=== PATIENT | female | born 1965 | race Caucasian/White ===

== ENCOUNTER 2023-11-06 08:02 | Emergency (ER) | payer BC, SELFPAY ==
[2023-11-06 08:12] VITALS: BP 137/74; PULSE 80; RESP 16; TEMP 36.9; O2SAT 97; BMI 29.2
--- NOTE | 2023-11-06 08:19 | ED.URI ---
HPI - URI/Sore Throat General Chief Complaint: Upper Respiratory Symptoms Stated Complaint: covid+, sent by nurse Time Seen by Provider: 11/06/23 08:19 History of Present Illness HPI Narrative: Patient is a 57-year-old female history of pulmonary embolisms failed Eliquis on warfarin, multiple strokes including a stroke, asthma has known COVID and presents today at request of insurance nurse for evaluation. She was diagnosed with COVID 4 days ago by home test. sHe continues to have headache and body aches. She staying hydrated although she says her urine was quite dark this morning. She says she just did not feel quite well she put up a home pulse oximeter on her finger he said for about 5 minutes it was 88%. She used her inhaler she went to the shower she was able to get it back up by taking deep breaths. She was instructed to come to the ED for further evaluation. She is not tachycardic or hypoxic here in the ED Exam Initial Vital Signs Initial Vital Signs: Vital Signs Temperature 98.4 F 11/06/23 08:12 Pulse Rate 80 11/06/23 08:12 Respiratory Rate 16 11/06/23 08:12 Blood Pressure 137/74 11/06/23 08:12 Pulse Oximetry 97 11/06/23 08:12 Oxygen Delivery Method Room Air 11/06/23 08:12 GENERAL: Well-appearing, well-nourished and in no acute distress. HEENT: Head atraumatic,EOMI, pupils reactive, face symmetric, moist mucous membranes CARDIOVASCULAR: Regular rate and rhythm without murmurs, rubs or gallops. RESPIRATORY: Breath sounds equal bilaterally, no wheezes rales or rhonchi. Lungs clear speaks in full sentences no respiratory distress EXTREMITIES: Normal range of motion, no clubbing or edema. Neurovascularly intact NEUROLOGICAL: Alert and oriented x4.Normal gait and speech. SKIN: Warm, dry, no laceration, no petechiae, no rashes or lesions. Course Vital Signs Vital signs: Vital Signs - 8 hr 11/06/23 08:12 Temperature 98.4 F Pulse Rate 80 Respiratory Rate 16 Blood Pressure 137/74 Pulse Oximetry 97 Oxygen Delivery Method Room Air MDM - URI/Sore Throat MDM Narrative Medical decision making narrative: Patient 57-year-old female with multiple comorbidities including CVA, pulmonary embolism with known COVID presents today concern for hypoxia home. Not hypoxic or tachycardic in the ED she is no evidence of respiratory distress lungs are clear. She has an albuterol inhaler at home we discussed using it more regularly if needed. At this time she appears well. Does not seem to need a chest x-ray or further workup. Encouraged her to continue taking her warfarin. She is scheduled to have an INR checked next week. Discharge Plan Departure Patient Disposition: Home Clinical Impression: COVID-19 Instructions: DI for COVID-19 (Suspected or Confirmed ) Activity Restrictions/Additional Instructions: *You have been diagnosed with COVID-19 *What to do: At this time rest and stay hydrated. Try to eat some. Continue to monitor oxygen levels *Continue to take medications as directed Albuterol 1-2 puffs every 4 hours if needed for cough or shortness Tylenol 650 mg every 6 hours if needed for fever *Follow up with your primary care provider in 2-3 days or call [phone] *Return to ER if you should have increasing shortness of breath oxygen less than 90% chest pain weakness or any new, worsening or concerning symptoms Referrals: Mc Maier DO [Primary Care Provider] - Stand Alone Forms: Patient Portal/API
--- NOTE | 2023-11-06 08:28 | PC.NURSE ---
Pt was advised to come to ED for being COVID+ day 4 by insurance company nurse. Pt is PWD. speaking in full sentences with normal vitals and SPO2 97%. Pt used her abuterol inhaler this morning for some SOB. No acute distress. Advised having some SOB and a cough is a symptom of covid and self limiting. Advised for return precautions.
== END 2023-11-06 08:39 | disposition home or self-care (01) ==
PROVIDERS: Emergency Provider Emergency Medicine; PCP Family Medicine
DX: U07.1 COVID-19 (principal); J45.909 Unspecified asthma, uncomplicated; Z86.711 Personal history of pulmonary embolism; Z79.01 Long term (current) use of anticoagulants; Z86.73 Personal history of transient ischemic attack (TIA), and cerebral infarction without residual deficits
CPT/HCPCS: 99281

== ENCOUNTER 2023-12-12 08:49 | Emergency (ER) | payer BC, SELFPAY ==
[2023-12-12 09:01] VITALS: BP 142/77; PULSE 90; RESP 16; TEMP 36.6; O2SAT 96; BMI 28.3
--- NOTE | 2023-12-12 09:08 | ED.SOB ---
HPI - SOB/Dyspnea General Chief Complaint: Upper Respiratory Symptoms Stated Complaint: cough w/chest pain and SOB Time Seen by Provider: 12/12/23 08:52 Source: patient Mode of arrival: Family Vehicle Limitations: no limitations History of Present Illness HPI Narrative: This is a 57-year-old female with history of pulmonary emboli on warfarin, prior strokes, asthma with recent cough, congestion and productive sputum with the discoloration. Patient states she has been coughing frequently enough that she has pain when she coughs in her right side of her chest. She feels like she strained or pulled a muscle. Patient states she has felt a little bit more short of breath. No syncope. No reported fevers. Several days of symptoms. Patient states no nausea or vomiting. She has had some diarrhea recently since symptoms started. No new swelling of extremities. Patient did have COVID at the beginning of October. Has had prior cervical spine surgery, total hysterectomy. Allergic to sulfa and barium sulfate. No tobacco, occasional alcohol, no recreational drugs. Accompanied by her . Related Data Previous Rx's Medication Instructions Recorded codeine 10 mg-guaifenesin 100 mg/5 10 ml PO Q6H PRN cough #120 mL 12/12/23 mL oral liquid Allergies Allergy/AdvReac Type Severity Reaction Status Date / Time barium sulfate Allergy Hives Verified 12/12/23 09:06 Sulfa (Sulfonamide Allergy Vomiting Verified 12/12/23 09:06 Antibiotics) Review of Systems Review of Systems ROS Unobtainable: All systems reviewed & are unremarkable except as noted in HPI and below Patient History Social History Smoking Status: Never smoker Smoking Status: Never smoker alcohol intake frequency: 0-2 drinks per day Substance Use Type: does not use Exam Narrative Exam Narrative: GENERAL: Alert and oriented x three, female in mild distress seated comfortably on edge of bed. HEENT: Head normocephalic, atraumatic, EOMI, pupils reactive, face symmetric, moist mucous membranes NECK: Supple, full range of motion CARDIOVASCULAR: Regular rate and rhythm without murmurs, rubs or gallops. No JVD. No edema bilateral lower extremities. RESPIRATORY: Breath sounds equal bilaterally, no wheezes rales or rhonchi. Dry cough with deep inhalation, No tachypnea or accessory. No tachypnea. ABDOMEN: Soft, nontender. Normoactive bowel sounds all 4 quadrants. No guarding or rebound, rigidity, no mass : No CVA tenderness EXTREMITIES: Normal range of motion, no clubbing or edema. Neurovascularly intact NEUROLOGICAL: Cranial nerves II through XII grossly intact. Moving all extremities SKIN: Warm, dry, no petechiae, no rashes or lesions. Initial Vital Signs Initial Vital Signs: Vital Signs Temperature 97.9 F 12/12/23 09:01 Pulse Rate 90 12/12/23 09:01 Respiratory Rate 16 12/12/23 09:01 Blood Pressure 142/77 H 12/12/23 09:01 Pulse Oximetry 96 12/12/23 09:01 Oxygen Delivery Method Room Air 12/12/23 09:01 Course Orders Ordered: ED Orders 12/12/23 09:13 Chest [XR chest 2V] Stat EKG-12 Lead Stat 12/12/23 09:36 Complete Blood Count AUTO DIFF Stat Comprehensive Metabolic Panel Stat Covid-19 + FLU A/B + RSV - PCR Stat Lipase Stat NT-proBNP (BNP-Adult 18+) Stat PTT Partial Thromboplastin [place] Stat Prothrombin Time INR Stat Troponin & CK Cardiac Panel Stat Vital Signs Vital signs: Vital Signs - 8 hr 12/12/23 09:01 12/12/23 09:50 12/12/23 09:51 Temperature 97.9 F Pulse Rate 90 98 H Respiratory Rate 16 Blood Pressure 142/77 H 133/69 Pulse Oximetry 96 97 Oxygen Delivery Method Room Air 12/12/23 09:51 12/12/23 10:00 12/12/23 10:00 Temperature Pulse Rate 86 79 Respiratory Rate Blood Pressure 113/62 Pulse Oximetry 97 94 Oxygen Delivery Method Room Air 12/12/23 10:30 12/12/23 10:30 Temperature Pulse Rate 80 Respiratory Rate Blood Pressure 108/63 Pulse Oximetry 94 Oxygen Delivery Method Room Air MDM - SOB/Dyspnea Lab Data 12/12/23 09:36 12/12/23 09:36 Labs: Lab Results 12/12/23 Range/Units 09:36 WBC 3.2 L (4.5-11.0) X10^3/uL RBC 4.62 (4.0-5.2) X10^6/uL Hgb 11.8 L (12.0-16.0) g/dL Hct 36.0 (36-46) % MCV 78.0 L (80-100) fL MCH 25.6 L (26-34) PG MCHC 32.8 (30-36) % RDW 17.6 H (11.6-14.8) % Plt Count 293 (150-400) X10^3/uL Neut % (Auto) 79.3 H (50-75) % Lymph % (Auto) 13.2 L (25-40) % [place] % (Auto) 7.4 (3-14) % Eos % (Auto) 0.0 L (2-4) % Baso % (Auto) 0.1 (0-2) % Neut # (Auto) 2500 (9706-4528) /uL Lymph # (Auto) 400 L (0451-7347) /uL [place] # (Auto) 200 (0-900) /uL Eos # (Auto) 0 (0-450) /uL Baso # (Auto) 0 (0-100) /uL PT 44.5 H (9.4-12.5) SECONDS INR 3.8 H (0.9-1.3) APTT 43 H (25.1-36.5) SECONDS Sodium 139 (137-145) mmol/L Potassium 4.2 (3.4-5.1) mmol/L Chloride 109 H (98-107) mmol/L Carbon Dioxide 23 (22-32) mmol/L BUN 11 (7-17) mg/dL Creatinine 0.66 (0.52-1.04) mg/dL Estimated GFR > 60 (>60) mL/min BUN/Creatinine Ratio 16.7 (6-22) Glucose 148 H (70-100) mg/dL Calcium 9.1 (8.4-10.2) mg/dL Total Bilirubin 0.4 (0.2-1.3) mg/dL AST 47 H (14-36) IU/L ALT 35 H (<35) IU/L Alkaline Phosphatase 59 (38-126) U/L Total Creatine Kinase 179 H (30-135) U/L Troponin I < 0.012 (0.01-0.034) ng/mL NT-Pro-B Natriuret Pep 40 (<125) pg/mL Total Protein 7.4 (6.3-8.2) g/dL Albumin 4.2 (3.5-5.0) g/dL Globulin 3.2 (1.7-4.1) g/dL Albumin/Globulin Ratio 1.3 (1.0-2.8) Lipase 58 (23-300) U/L SARS-CoV-2 (PCR) Positive H (Negative) Influenza A (RT-PCR) Flu a positive H (NEGATIVE) Influenza B (RT-PCR) Flu b negative (NEGATIVE) RSV (PCR) Negative (Negative) Imaging Data Chest x-ray: Radiologist's Impression: Close Chest X-Ray (Signed) Dominic Paulino - 12/12/23 Launch?[address] [address] XRay Report Signed Patient: Wendy Maki MR#: [id number] : 1965 Acct:[id number] Age/Sex: 57 / F Date of Service: 12/12/23 Loc: ED Accession Number: [id number] Procedure: XR chest 2V Ordering Provider: Cynthia Garland D.O. PROCEDURE: XR CHEST 2V INDICATIONS: cough, productive sputum, sob TECHNIQUE: 2 views of the chest were acquired. COMPARISON: None. FINDINGS: Surgical changes and devices: Postsurgical changes are noted in visualized lower cervical spine and upper thoracic spine. Lungs and pleura: Lungs are clear. No pleural effusions or pneumothorax. Mediastinum: Mediastinal contours are normal. Heart size is normal. Bones and chest wall: No suspicious bony abnormalities. Soft tissues appear unremarkable. IMPRESSION: No acute cardiopulmonary pathology. Dictated by: Dominic Paulino M.D. on 12/12/2023 at 9:54 Approved by: Dominic Paulino M.D. on 12/12/2023 at 9:54 ECG Data Attestation: I personally reviewed and interpreted this ECG as follows: Prior ECG tracings: not available for review Interpretation: Sinus rhythm rate 83 OH 134 QRS is 64 QTC of 430. No acute ST elevation T-wave inverted in lead 3. No other acute changes appreciated. Patient does not have any priors for comparison. MDM Narrative Medical decision making narrative: This is a 57-year-old female with history of pulmonary emboli hold warfarin. Patient has had viral upper respiratory type symptoms she has a cough she has had some pain in her right chest with cough feels like she strained a muscle. It only occurs when she coughs hard. Patient is little bit congestion on examination in her nares, lungs are clear. No crackles or wheezes. She has noted some rodriguez productive sputum. Plan for COVID/influenza/RSV swab, chest x-ray because patient's history of pulmonary emboli she and her INR checked recently but no one ever called her with the results. We will check labs. CBC patient has low white count, hemoglobin is 11.8 with microcytosis. Patient states she has been told she has had abnormalities before. Normal platelets of 293 CMP chloride 109 otherwise normal electrolytes glucose 148 normal renal function AST ALT are slightly elevated at 47 and 35 with CK 179 and trope that is negative. INR is 3.8 Trop is negative BNP is normal CXR chest x-ray shows no acute change EKG EKG shows no acute changes. covid/influenza/rsv swab is positive for influenza A. Patient is also positive for COVID but was positive in mid to early October so maybe residual. Patient had slightly low blood pressure but otherwise very well-appearing. Patient has ambulated about the room without issue. Patient is felt appropriate for discharge home. Discussed Tamiflu will hold off at this time patient is outside the window 5 days of symptoms and she does not wish to pursue any way. We will do a short course of anti cough medication. Return precautions. Patient's INR is elevated so asked her to hold for the next 2 doses and follow up with physician to have rechecked. Discharge Plan Departure Patient Disposition: Home Clinical Impression: Influenza A Activity Restrictions/Additional Instructions: Your swab today is positive for influenza A, you are positive for COVID as well but this may be a residual positive from your infection last month. Your INR today is 3.8, please hold your next two doses and then restart. Follow up with your physician to have your INR rechecked. Continue with Tylenol and/or ibuprofen as needed for fevers. Take cough medication as prescribed. This medication can make you sleepy do not drive, perform hazardous activities or make any major decisions while taking it. This medication will make you constipated please take a stool softener once to twice daily until stools are soft and regular. Prescription sent to [facility] in [place]. Please return for new or worsening chest pain, shortness of breath, lightheadedness or passing out, new swelling in your extremities, or other new or concerning changes. Prescriptions: New codeine-guaifenesin 10-100 mg/5 mL liquid 10 ml PO Q6H PRN (Reason: cough) Qty: 120 0RF Referrals: Mc Maier DO [Primary Care Provider] - Stand Alone Forms: Patient Portal/API
--- NOTE | 2023-12-12 09:13 | DI.RAD.S_ITS ---
PROCEDURE: XR CHEST 2V INDICATIONS: cough, productive sputum, sob TECHNIQUE: 2 views of the chest were acquired. COMPARISON: None. FINDINGS: Surgical changes and devices: Postsurgical changes are noted in visualized lower cervical spine and upper thoracic spine. Lungs and pleura: Lungs are clear. No pleural effusions or pneumothorax. Mediastinum: Mediastinal contours are normal. Heart size is normal. Bones and chest wall: No suspicious bony abnormalities. Soft tissues appear unremarkable. IMPRESSION: No acute cardiopulmonary pathology. Dictated by: Dominic Paulino M.D. on 12/12/2023 at 9:54 Approved by: Dominic Paulino M.D. on 12/12/2023 at 9:54
[2023-12-12 09:48] LABS: Add Manual Diff / Slide Review NO; Basophils Absolute Auto 0 /uL (0-100); Basophils Percent Auto 0.1 % (0-2); Eosinophils Absolute Auto 0 /uL (0-450); Hemoglobin 11.8 g/dL (12.0-16.0); Lymphocytes Absolute Auto 400 /uL (1100-4500); Lymphocytes Percent Auto 13.2 % (25-40); Mean Corpuscular HGB Conc 32.8 % (30-36); Mean Corpuscular Hemoglobin 25.6 PG (26-34); Monocytes Absolute Auto 200 /uL (0-900); Monocytes Percent Auto 7.4 % (3-14); Neutrophils Absolute Auto 2500 /uL (1500-7000); Neutrophils Percent Auto 79.3 % (50-75); Platelet Count 293 X10^3/uL (150-400); Red Blood Cell Count 4.62 X10^6/uL (4.0-5.2); Red Cell Distribution Width 17.6 % (11.6-14.8); White Blood Cell Count 3.2 X10^3/uL (4.5-11.0)
[2023-12-12 09:50] VITALS: PULSE 98; O2SAT 97
[2023-12-12 09:51] VITALS: BP 133/69; PULSE 86; O2SAT 97
[2023-12-12 09:54] LABS: INR 3.8 (0.9-1.3); Prothrombin Time 44.5 SECONDS (9.4-12.5)
[2023-12-12 09:57] LABS: PTT Partial Thromboplastin Tim 43 SECONDS (25.1-36.5)
[2023-12-12 09:59] LABS: Alanine Aminotransferase 35 IU/L (<35); Albumin 4.2 g/dL (3.5-5.0); Albumin Globulin Ratio 1.3 (1.0-2.8); Alkaline Phosphatase 59 U/L (38-126); Aspartate Aminotransferase 47 IU/L (14-36); BUN Creatinine Ratio 16.7 (6-22); Bilirubin Total 0.4 mg/dL (0.2-1.3); Blood Urea Nitrogen 11 mg/dL (7-17); Calcium 9.1 mg/dL (8.4-10.2); Carbon Dioxide 23 mmol/L (22-32); Chloride 109 mmol/L (98-107); Creatine Kinase 179 U/L (30-135); Estimated Glomerular Filt Rate > 60 mL/min (>60); Globulin 3.2 g/dL (1.7-4.1); Glucose 148 mg/dL (70-100); HEMOLYSIS < 15 (0-50); Lipase 58 U/L (23-300); Potassium 4.2 mmol/L (3.4-5.1); Sodium 139 mmol/L (137-145); Total Protein 7.4 g/dL (6.3-8.2)
[2023-12-12 10:00] VITALS: BP 113/62; PULSE 79; O2SAT 94
[2023-12-12 10:09] LABS: NT-proBNP (BNP-Adult 18+) 40 pg/mL (<125)
[2023-12-12 10:12] LABS: Troponin I < 0.012 ng/mL (0.01-0.034)
[2023-12-12 10:25] LABS: Influenza A - CEPHEID Flu A POSITIVE (NEGATIVE); Influenza B - CEPHEID Flu B NEGATIVE (NEGATIVE); Respiratory Syncytial Virus Negative (Negative)
[2023-12-12 10:30] VITALS: BP 108/63; PULSE 80; O2SAT 94
[2023-12-12 10:30] LABS: COVID-19 CEPHEID 4-PLEX PCR POSITIVE (Negative)
== END 2023-12-12 10:54 | disposition home or self-care (01) ==
PROVIDERS: Emergency Provider Emergency Medicine; PCP Family Medicine
DX: U07.1 COVID-19 (principal); J10.1 Influenza due to other identified influenza virus with other respiratory manifestations; R07.9 Chest pain, unspecified
CPT/HCPCS: 0241U; 36415; 71046; 80053; 82550; 83690; 83880; 84484; 85025; 85610; 85730; 93005; 93010; 99284

== ENCOUNTER → 2024-04-15 07:08 | Outpatient (CLI) | payer BC, SELFPAY ==
--- NOTE | 2024-04-15 07:11 | DI.MRI.S_ITS ---
PROCEDURE: MR LUMBAR SPINE WO CON INDICATIONS: INCREASED LOW BACK PAIN W/RADIATION TO RT KNEE TECHNIQUE: Noncontrast sagittal T1 spin echo and T2 fast echo, sagittal STIR, and T2 fast spin echo through the lumbar spine. In cases with scoliosis, additional coronal T2 fast spin echo may be performed. COMPARISON: None. FINDINGS: Image quality: Excellent. Alignment and Curvature: There is trace retrolisthesis at L2-3. There is otherwise normal bony alignment. Bone Marrow: Marrow is of normal overall signal. No acute vertebral body compression fractures. Spinal Cord: Conus medullaris terminates at the L1 level. Visualized cord demonstrates normal signal and size. Paraspinous Soft Tissues: No paravertebral masses. T12-L1: Mild disc desiccation and height loss. No canal stenosis. No foraminal stenosis. L1-L2: Mild disc desiccation and height loss. Broad-based disc bulge. Moderate facet ligamentum flavum hypertrophy. No canal stenosis. Mild bilateral foraminal stenosis. L2-L3: Severe disc desiccation and height loss. Trace retrolisthesis. Mild facet ligamentum flavum hypertrophy. Mild canal stenosis. Moderate right and mild left foraminal narrowing. L3-L4: Mild disc desiccation and height loss. Moderate facet ligamentum flavum hypertrophy. Broad-based disc bulge. Mild canal stenosis. Mild left and moderate right foraminal narrowing. L4-L5: Mild disc desiccation and height loss. Severe facet ligamentum flavum hypertrophy. Mild canal stenosis. Mild bilateral foraminal stenosis. L5-S1: Mild disc desiccation and height loss. No canal stenosis. Mild right foraminal stenosis. Moderate left foraminal narrowing. IMPRESSION: 1. Multilevel disc desiccation and height loss most severe at L2-3. 2. Multilevel broad-based disc bulges and facet and ligamentum flavum hypertrophy with resultant mild canal stenosis at L2-3, L3-4, and L4-5. 3. Moderate right foraminal stenosis at L2-3 and L3-4. Moderate left foraminal stenosis at L5-S1. Dictated by: Irena Ross M.D. on 04/15/2024 at 16:31 Approved by: Irena Ross M.D. on 04/15/2024 at 16:40
--- NOTE | 2024-04-15 08:13 | DI.RAD.S_ITS ---
PROCEDURE: XR CERVICAL SPINE 4V OR 5V INDICATIONS: NECK PAIN TECHNIQUE: 5 views of the cervical spine acquired. COMPARISON: None. FINDINGS: Bones: No fractures or dislocations to the T1 level. Grade 1 anterolisthesis of C2 on C3. Discectomy and anterior fusion at C3-C7 and C6-T1. Oblique images demonstrate multilevel bilateral bony foraminal stenoses, most pronounced and moderate at C2 3-C4 on the right, mild at multiple other levels. Soft tissues: No prevertebral soft tissue swelling. IMPRESSION: 1. Extensive postsurgical changes with discectomy and anterior fusion at C3-T1. 2. Grade 1 anterolisthesis of C2-C3. 3. Multilevel foraminal stenoses bilaterally as described. Dictated by: Gibson Guthrie M.D. on 04/15/2024 at 9:24 Approved by: Gibson Guthrie M.D. on 04/15/2024 at 9:30
== END ==
PROVIDERS: PCP Internal Medicine; Referring Provider Anesthesiology; Visit Provider Anesthesiology
DX: M48.02 Spinal stenosis, cervical region (principal); M43.12 Spondylolisthesis, cervical region; M47.816 Spondylosis without myelopathy or radiculopathy, lumbar region; M51.36 Other intervertebral disc degeneration, lumbar region; M48.061 Spinal stenosis, lumbar region without neurogenic claudication; M48.07 Spinal stenosis, lumbosacral region; M54.2 Cervicalgia; Z98.1 Arthrodesis status
CPT/HCPCS: 72050; 72148

== ENCOUNTER → 2024-04-23 15:16 | Outpatient (CLI) | payer BC, SELFPAY ==
--- NOTE | 2024-04-23 15:17 | DI.MRI.S_ITS ---
PROCEDURE: MR CERVICAL SPINE WO CON INDICATIONS: Cervical radiculopathy TECHNIQUE: Noncontrast sagittal T1 spin echo and T2 fast spin echo, sagittal STIR, foraminal oblique sagittal T2 fast spin echo, and axial gradient echo or T2 fast spin echo through the cervical spine. COMPARISON: [facility], CR, XR CERVICAL SPINE 4V OR 5V, 04/15/2024, 8:19. FINDINGS: Image quality: Susceptibility artifact is present from metallic hardware of cervical fusion. Alignment and Curvature: Anterior fusion is present from C3 through C6 with additional anterior fusion wires at C6-7 and C7-T1. There is trace anterolisthesis of C2 on C3. Bone Marrow: Marrow demonstrates normal overall signal. Spinal Cord: Visualized spinal cord has normal size and signal. No cerebellar tonsillar herniation. Paraspinous Soft Tissues: No paravertebral masses. Prevertebral soft tissues are normal in thickness. Discs: Prominent multilevel disc desiccation. C2-C3: Mild disc bulge without spinal stenosis. Moderate right and [id number] left foraminal narrowing with uncovertebral hypertrophy. C3-C4: Mild disc bulge without spinal stenosis. Moderate right foraminal narrowing with uncovertebral hypertrophy. C4-C5: Mild disc bulge without spinal stenosis. Minimal to mild right foraminal narrowing. C5-C6: Mild disc bulge without spinal stenosis. [id number] bilateral foraminal narrowing with uncovertebral hypertrophy. C6-C7: Mild disc bulge with mild spinal stenosis. Moderate left and minimal to mild right foraminal narrowing with uncovertebral hypertrophy. C7-T1: Mild disc bulge without spinal stenosis. Mild bilateral foraminal narrowing with uncovertebral hypertrophy. IMPRESSION: Extensive anterior fusion from C3 through T1. Mild spinal stenosis C6-7 secondary to disc bulge. Dictated by: Celsa Gutierrez M.D. on 04/26/2024 at 11:16 Approved by: Celsa Gutierrez M.D. on 04/26/2024 at 13:12
== END ==
LOC: MRI 15:17
PROVIDERS: PCP Internal Medicine; Referring Provider Anesthesiology; Visit Provider Anesthesiology
DX: M50.11 Cervical disc disorder with radiculopathy, high cervical region (principal); M48.02 Spinal stenosis, cervical region; Z98.1 Arthrodesis status
CPT/HCPCS: 72141

== ENCOUNTER 2024-11-22 11:39 | Emergency (ER) | payer BC, SELFPAY ==
[2024-11-22 11:44] VITALS: BP 160/90; PULSE 86; RESP 20; TEMP 37.1; O2SAT 97; BMI 31.2
[2024-11-22 13:41] VITALS: BP 141/75; PULSE 81; RESP 19; O2SAT 99
--- NOTE | 2024-11-22 14:18 | ED_ITS ---
HPI - Back Pain/Injury <Nayana Quintero PA-C - Last Filed: 11/22/24 19:48> General Chief Complaint: Back Pain/Injury Stated Complaint: fall, poss back injury, thinners Time Seen by Provider: 11/22/24 13:44 Source: patient History of Present Illness HPI Narrative: Ms. Wendy Maki is a very pleasant 58-year-old female with a past medical history of factor 5 Leiden on warfarin, cervical spondylosis, bilateral occipital neuralgia who presents to the emergency department for a fall last night with subsequent back pain, left-sided neck pain, left foot/ankle pain. Patient states last night while going down steps at her home while holding Milady presents she fell down the last 3 steps landing on her left side. Reports that ?everything hurts? immediately after the fall however she went to sleep. This morning she noticed left-sided neck pain, low back pain, midthoracic back pain, left foot and ankle pain. At 4:00 a.m. she woke up for work and took a 5 mg hydrocodone which improved her pain. States that while working from home however, she noticed some weakness and pain in her left leg making it difficult to walk which prompted her ER arrival. She denies hitting her head or loss of consciousness. No nausea or vomiting or visual disturbance. Related Data Home Medications Medication Instructions Recorded Confirmed atorvastatin 40 mg tablet 40 mg PO DAILY 04/15/24 05/03/24 fexofenadine 180 mg tablet 180 mg PO DAILY 04/15/24 05/03/24 (Jacqueline Allergy) hydrocodone 5 mg-acetaminophen 325 1 tab PO 3XD PRN 04/15/24 05/03/24 mg tablet levothyroxine 75 mcg tablet 75 mcg PO DAILY 04/15/24 05/03/24 sertraline 100 mg tablet 150 mg PO DAILY 04/15/24 05/03/24 warfarin 10 mg tablet 10 mg PO BEDTIME 04/15/24 05/03/24 albuterol sulfate 90 mcg/actuation inhalation 05/03/24 05/03/24 aerosol inhaler (Ventolin HFA) beclomethasone dipropionate 80 inhalation 05/03/24 05/03/24 mcg/actuation HFA breath activated aerosol (Qvar RediHaler) Previous Rx's Medication Instructions Recorded pregabalin 50 mg capsule 50 mg PO BID #60 caps 04/15/24 Allergies Allergy/AdvReac Type Severity Reaction Status Date / Time barium sulfate Allergy Hives Verified 05/03/24 13:45 Sulfa (Sulfonamide Allergy Vomiting Verified 05/03/24 13:45 Antibiotics) melon AdvReac Severe Difficulty Verified 05/03/24 13:45 Swallowing Review of Systems <Nayana Quintero PA-C - Last Filed: 11/22/24 19:48> Review of Systems ROS Unobtainable: All systems reviewed & are unremarkable except as noted in HPI and below Patient History <Nayana Quintero PA-C - Last Filed: 11/22/24 19:48> Medical History Myofascial pain Bilateral occipital neuralgia Cervical radiculopathy Cervical spondylosis Neck pain Surgical History History of fusion of cervical spine Social History Smoking Status: Never smoker Smoking Status: Never smoker alcohol intake frequency: 0-2 drinks per day Exam <Nayana Quintero PA-C - Last Filed: 11/22/24 19:48> Narrative Exam Narrative: GENERAL: 58 year old patient appears stated age. Well-developed patient, in no acute distress. HEAD: Atraumatic. Normocephalic. NECK: Trachea midline. Cervical ROM intact. CARDIOVASCULAR: Regular rate and rhythm. RESPIRATORY: ?Nonlabored respirations. ?Speaking in clear, full sentences. ?Clear to auscultation. GASTROINTESTINAL: Abdomen soft, non-tender, nondistended. EXTREMITIES: Tenderness to palpation of lateral left foot and ankle, no medial or lateral malleolus point tenderness. Pain with left SLR. BACK: Tenderness to palpation of left cervical paraspinal region, midthoracic back, mid lumbar back. No crepitus or deformities palpated. No bruising. NEURO: AOx3. ?Clear speech. ?Equal BL LE SITLT. SKIN: No rash or erythema of visible areas Initial Vital Signs Initial Vital Signs: Vital Signs Temperature 98.7 F 11/22/24 11:44 Pulse Rate 86 11/22/24 11:44 Respiratory Rate 20 11/22/24 11:44 Blood Pressure 160/90 H 11/22/24 11:44 Pulse Oximetry 97 11/22/24 11:44 Oxygen Delivery Method Room Air 11/22/24 11:44 <Jaime Esparza MD - Last Filed: 11/22/24 20:55> Initial Vital Signs Initial Vital Signs: Vital Signs Temperature 98.7 F 11/22/24 11:44 Pulse Rate 86 11/22/24 11:44 Respiratory Rate 20 11/22/24 11:44 Blood Pressure 160/90 H 11/22/24 11:44 Pulse Oximetry 97 11/22/24 11:44 Oxygen Delivery Method Room Air 11/22/24 11:44 Course <Nayana Quintero PA-C - Last Filed: 11/22/24 19:48> Orders Ordered: ED Orders 11/22/24 14:31 CT head/brain wo con Stat 11/22/24 14:33 CT cervical spine wo con Stat CT chest abd pel wo con Stat XR ankle LT min 3V Stat XR foot LT min 3V Stat 11/22/24 15:57 XR knee LT 3V Stat Vital Signs Vital signs: Vital Signs - 8 hr 11/22/24 13:41 11/22/24 15:42 11/22/24 15:43 Pulse Rate 81 77 73 Respiratory Rate 19 Blood Pressure 141/75 H Pulse Oximetry 99 97 100 Oxygen Delivery Method Room Air 11/22/24 15:43 11/22/24 17:36 Pulse Rate 89 Respiratory Rate 15 Blood Pressure 135/78 129/65 Pulse Oximetry 96 Oxygen Delivery Method Room Air <Jaime Esparza MD - Last Filed: 11/22/24 20:55> Orders Ordered: ED Orders 11/22/24 14:31 CT head/brain wo con Stat 11/22/24 14:33 CT cervical spine wo con Stat CT chest abd pel wo con Stat XR ankle LT min 3V Stat XR foot LT min 3V Stat 11/22/24 15:57 XR knee LT 3V Stat Vital Signs Vital signs: Vital Signs - 8 hr 11/22/24 13:41 11/22/24 15:42 11/22/24 15:43 Pulse Rate 81 77 73 Respiratory Rate 19 Blood Pressure 141/75 H Pulse Oximetry 99 97 100 Oxygen Delivery Method Room Air 11/22/24 15:43 11/22/24 17:36 Pulse Rate 89 Respiratory Rate 15 Blood Pressure 135/78 129/65 Pulse Oximetry 96 Oxygen Delivery Method Room Air MDM - Back Pain/Injury <Nayana Quintero PA-C - Last Filed: 11/22/24 19:48> Medical Records Attestation: I reviewed the patient's medical records. Imaging Data CT scan - head: Radiologist's Impression: PROCEDURE: CT HEAD/BRAIN WO CON INDICATIONS: fall onto left side; neck and back pain on thinners TECHNIQUE: Noncontrast 4.5 mm thick angled axial sections acquired from the foramen magnum to the vertex, with coronal and sagittal reformats. For radiation dose reduction, the following was used: automated exposure control, adjustment of mA and/or kV according to patient size. COMPARISON: None. FINDINGS: Image quality: Diagnostic. CSF spaces: Basal cisterns are patent. No extra-axial fluid collections. Ventricles are normal in size and shape. Brain: No midline shift. No intracranial masses or hemorrhage. Parekh-white matter interface is normal. Skull and face: Calvarium and visualized facial bones are intact, without suspicious lesions. Sinuses: Visualized sinuses and mastoids are clear. IMPRESSION: No acute intracranial pathology. CT - cervical spine: Radiologist's Impression: PROCEDURE: CT CERVICAL SPINE WO CON INDICATIONS: fall onto left side; neck and back pain on thinners TECHNIQUE: Noncontrast 3 mm thick sections acquired from the skull base to the T4 level. Sagittal and coronal reformats were then constructed. For radiation dose reduction, the following was used: automated exposure control, adjustment of mA and/or kV according to patient size. COMPARISON: [facility], CR, XR CERVICAL SPINE 4V OR 5V, 04/15/2024, 8:19. FINDINGS: Image quality: Excellent. Bones: No acute fractures or dislocations. Postsurgical changes are seen from prior anterior fixation at C3 through T1. Metal hardware appears to be intact. There has been removal of the posterior elements at multiple levels. 2 mm grade 1 anterolisthesis of C2 and C3 does not appear significantly changed. Visualized superior ribs are intact. Soft tissues: Prevertebral soft tissues are normal in thickness. No paravertebral hematomas. No apical pneumothoraces. IMPRESSION: 1. No acute displaced cervical spine fracture or traumatic subluxation. 2. Postsurgical changes again seen from anterior fusion at C3 through T1. CT Chest Abd Pel: Radiologist's Impression: PROCEDURE: CT CHEST ABD PEL WO CON INDICATIONS: fall onto left side; neck and back pain on thinners TECHNIQUE: After the administration of oral contrast, 5 mm thick sections acquired from the lung apices to the symphysis pubis. 5 mm thick coronal and sagittal reformats acquired, with additional 7 mm coronal MIP reformats through the lungs. For radiation dose reduction, the following was used: automated exposure control, adjustment of mA and/or kV according to patient size. COMPARISON: None. FINDINGS: Image quality: Diagnostic. CHEST: Lower Neck: No enlarged lymph nodes. Thyroid: No thyroid nodules which require sonographic follow up, per consensus guidelines. Axillae: No enlarged lymph nodes. Chest Wall: Unremarkable. Bones: Unremarkable. Lungs and Pleura: No pneumothorax or pleural effusions. Mild band like atelectasis or scarring at the left lung base. No consolidation or suspicious nodules. Heart: Heart size is normal. No pericardial effusion. Thoracic Vessels: The aorta and pulmonary arteries demonstrate normal size. Mediastinum and Betty: No enlarged lymph nodes. Esophagus: No wall thickening. No hiatal hernia. ABDOMEN: Liver: No solid mass. Gallbladder: No radiopaque gallstones or wall thickening. Biliary ducts: No biliary dilation. Pancreas: No ductal dilation. Spleen: Size is within normal limits. Adrenal Glands: No adrenal nodules. Kidneys and Ureters: No hydronephrosis. No solid mass. No complex renal cystic lesion which requires follow up. 3 mm nonobstructing calculi are seen in the inferior pole the right kidney. Stomach and Bowel: Normal colonic caliber, without significant wall thickening. Status post appendectomy. Small bowel loops are unremarkable. Peritoneum: No abnormal intraperitoneal fluid. No free air. Ventral Wall: Small foci of soft tissue attenuation are seen in the anterior abdominal subcutaneous tissues, possibly related to medication injections. Small fat containing periumbilical hernia. Abdominal Nodes: No retroperitoneal or mesenteric adenopathy by size criteria. Vessels: Aorta and inferior vena cava are normal in size. PELVIS: Pelvic Organs: Status post hysterectomy. Bladder: Unremarkable. Pelvic Nodes: No enlarged lymph nodes. Miscellaneous: No inguinal hernias are seen. Bones: No aggressive osseous abnormality. Postsurgical changes are seen in the included cervical spine. Mild subcutaneous edema at the left lower back. IMPRESSION: Mild subcutaneous edema at the left lower back. Otherwise, no acute traumatic findings identified in the chest, abdomen, or pelvis. Left Ankle XR: Radiologist's Impression: PROCEDURE: XR ANKLE LT MIN 3V INDICATIONS: fall left foot and ankle pain TECHNIQUE: 3 views of the ankle were acquired. COMPARISON: None. FINDINGS: Bones: Linear lucencies are noted involving distal fibular shaft above the level of ankle mortise. No displaced fracture or dislocation. Ankle mortise is normally aligned. No suspicious bony lesions. Soft tissues: No tibiotalar joint effusion. Achilles tendon appears normal. IMPRESSION: Finding may represent nondisplaced/incomplete distal fibular shaft fracture. No displaced ankle fracture or dislocation. Left Foot X-Ray: Radiologist's Impression: PROCEDURE: XR FOOT LT MIN 3V INDICATIONS: left foot pain fall TECHNIQUE: 3 views of the foot were acquired. COMPARISON: None. FINDINGS: Bones: No fractures or dislocations. Bipartite medial sesamoid of 1st metatars al head is seen. No suspicious bony lesions. Soft tissues: No tibiotalar joint effusion. Achilles tendon appears normal. IMPRESSION: No acute left foot fracture or dislocation. Left Knee X-Ray: Radiologist's Impression: PROCEDURE: XR KNEE LT 3V INDICATIONS: Left distal fibular fracture, concern for proximal fibula fx TECHNIQUE: 3 views of the knee were acquired. COMPARISON: None. FINDINGS: Bones: No fractures or dislocations. [id number] tricompartmental osteoarthritis in left knee is seen. No significant patellar subluxation. No suspicious bony lesions. Soft tissues: No joint effusion. No suspicious soft tissue calcifications. IMPRESSION: No acute left knee fracture or dislocation. [id number] tricompartmental osteoarthritis in left knee. No significant joint effusion. [facility] Narrative Medical decision making narrative: 58-year-old female with a past medical history of factor 5 Leiden on warfarin, cervical spondylosis, bilateral occipital neuralgia who presents to the emerge ncy department for a fall last night with subsequent back pain, left-sided neck pain, left foot/ankle pain. Her contributes to the history. Differential diagnosis includes but is not limited to spinal compression fracture, closed head injury, left foot fracture, Left ankle fracture, muscle spasm, muscle strain, spinal stenosis, etc. On exam the patient is in no acute distress, nontoxic appearing. She is subjective pain in the left side of her neck, midthoracic back and lumbar back. Left foot and ankle pain. Pain and weakness elevation of left leg while lying in stretcher. We will obtain CT imaging of the spine and the head given fall and on warfarin. We will also obtain x-ray imaging of left foot and ankle. No tenderness to palpation of bilateral wrists. She declines need for pain medication at this time. Head CT reveals no acute intracranial pathology. Cervical spine CT reveals no acute displaced cervical spine fracture or traumatic subluxation. CT chest abdomen pelvis reveals mild subcutaneous edema at the left lower back otherwise no acute traumatic findings. Left foot reveals no fracture or dislocation. Left ankle x-ray reveals nondisplaced/incomplete distal fibular shaft fracture. No displaced ankle fracture or dislocation. Left knee x-ray added on to rule out proximal fibular fracture. Discussed case with orthopedic surgeon on-call Dr. Rutledge at 1640pm. Patient is appropriate for left ankle walking boot and follow up in clinic. Patient verbalized understanding of all information is agreeable to the plan. Recommended supportive care, rice therapy, ice for low back swelling. We discussed strict ER return precautions. Patient verbalized understanding of all information and is stable for discharge home. Discharge Plan Departure Patient Disposition: Home Clinical Impression: Fall Qualifiers: Encounter type: initial encounter Qualified Code(s): W19.XXXA - Unspecified fall, initial encounter Closed fracture of distal end of left fibula Qualifiers: Encounter type: initial encounter Fracture morphology: unspecified fracture morphology Qualified Code(s): S82.832A - Other fracture of upper and lower end of left fibula, initial encounter for closed fracture Low back pain Qualifiers: Chronicity: acute Back pain laterality: midline Sciatica presence: without sciatica Qualified Code(s): M54.50 - Low back pain, unspecified Instructions: DI for Ankle Fracture Activity Restrictions/Additional Instructions: Today you were evaluated for pain after a fall. X-ray of your left ankle shows a fracture of the fibula. Please remain in the left orthopedic boot and follow up with Orthopedics. You can call to schedule an appointment with [facility] Orthopedics Dr. Rutledge at [phone]. Please leave a message if you do not get a hold of them. CT scan of your back shows mild subcutaneous edema of the left lower back. Please ice this area, rest, use [id number] pain medications if needed. There are no acute abnormalities on your head or neck CT scans. Please follow up with your primary care doctor within the next 2-3 days for ER follow-up. (If you do not have a PCP you can call [phone]. ?to schedule an appointment with an [facility] Primary Care Provider) IF YOU DEVELOP ANY NEW OR WORSENING SYMPTOMS, RETURN TO THE ER! Please read the attached instructions, they highlight more specific treatments and interventions for you at home. Thank you for letting me participate in your care, Nayana Quintero PA-C Prescriptions: No Action warfarin 10 mg tablet 10 mg PO BEDTIME sertraline 100 mg tablet 150 mg PO DAILY atorvastatin 40 mg tablet 40 mg PO DAILY levothyroxine 75 mcg tablet 75 mcg PO DAILY hydrocodone-acetaminophen 5-325 mg tablet 1 tab PO 3XD PRN fexofenadine [Jacqueline Allergy] 180 mg tablet 180 mg PO DAILY pregabalin 50 mg capsule 50 mg PO BID Qty: 60 2RF Rx Instructions: 1 PO QHS x3 days If tolerated, 1 PO BID Qvar RediHaler 80 mcg/actuation HFA aerosol breath activated inhalation albuterol sulfate [Ventolin HFA] 90 mcg/actuation HFA aerosol inhaler inhalation Referrals: Gisela Boone MD [Primary Care Provider] - Ammon Rutledge MD [Physician] - (left distal fibular fracture) Stand Alone Forms: Patient Portal/API/Survey ED Sign-out <Jaime Esparza MD - Last Filed: 11/22/24 20:55> Cosign ED Attending Eneida Attestation: I was immediately available in the department for consultation. This documentation has been reviewed and I agree with assessment and plan. Supervised by Jaime Esparza MD
--- NOTE | 2024-11-22 14:31 | DI.CT.S_ITS ---
PROCEDURE: CT HEAD/BRAIN WO CON INDICATIONS: fall onto left side; neck and back pain on thinners TECHNIQUE: Noncontrast 4.5 mm thick angled axial sections acquired from the foramen magnum to the vertex, with coronal and sagittal reformats. For radiation dose reduction, the following was used: automated exposure control, adjustment of mA and/or kV according to patient size. COMPARISON: None. FINDINGS: Image quality: Diagnostic. CSF spaces: Basal cisterns are patent. No extra-axial fluid collections. Ventricles are normal in size and shape. Brain: No midline shift. No intracranial masses or hemorrhage. Parekh-white matter interface is normal. Skull and face: Calvarium and visualized facial bones are intact, without suspicious lesions. Sinuses: Visualized sinuses and mastoids are clear. IMPRESSION: No acute intracranial pathology. Dictated by: Yousif Hughes M.D. on 11/22/2024 at 15:14 Approved by: Yousif Hughes M.D. on 11/22/2024 at 15:15
--- NOTE | 2024-11-22 14:33 | DI.RAD.S_ITS ---
PROCEDURE: XR FOOT LT MIN 3V INDICATIONS: left foot pain fall TECHNIQUE: 3 views of the foot were acquired. COMPARISON: None. FINDINGS: Bones: No fractures or dislocations. Bipartite medial sesamoid of 1st metatarsal head is seen. No suspicious bony lesions. Soft tissues: No tibiotalar joint effusion. Achilles tendon appears normal. IMPRESSION: No acute left foot fracture or dislocation. Dictated by: Dominic Paulino M.D. on 11/22/2024 at 15:25 Approved by: Dominic Paulino M.D. on 11/22/2024 at 15:26
--- NOTE | 2024-11-22 14:33 | DI.CT.S_ITS ---
PROCEDURE: CT CHEST ABD PEL WO CON INDICATIONS: fall onto left side; neck and back pain on thinners TECHNIQUE: After the administration of oral contrast, 5 mm thick sections acquired from the lung apices to the symphysis pubis. 5 mm thick coronal and sagittal reformats acquired, with additional 7 mm coronal MIP reformats through the lungs. For radiation dose reduction, the following was used: automated exposure control, adjustment of mA and/or kV according to patient size. COMPARISON: None. FINDINGS: Image quality: Diagnostic. CHEST: Lower Neck: No enlarged lymph nodes. Thyroid: No thyroid nodules which require sonographic follow up, per consensus guidelines. Axillae: No enlarged lymph nodes. Chest Wall: Unremarkable. Bones: Unremarkable. Lungs and Pleura: No pneumothorax or pleural effusions. Mild band like atelectasis or scarring at the left lung base. No consolidation or suspicious nodules. Heart: Heart size is normal. No pericardial effusion. Thoracic Vessels: The aorta and pulmonary arteries demonstrate normal size. Mediastinum and Betty: No enlarged lymph nodes. Esophagus: No wall thickening. No hiatal hernia. ABDOMEN: Liver: No solid mass. Gallbladder: No radiopaque gallstones or wall thickening. Biliary ducts: No biliary dilation. Pancreas: No ductal dilation. Spleen: Size is within normal limits. Adrenal Glands: No adrenal nodules. Kidneys and Ureters: No hydronephrosis. No solid mass. No complex renal cystic lesion which requires follow up. 3 mm nonobstructing calculi are seen in the inferior pole the right kidney. Stomach and Bowel: Normal colonic caliber, without significant wall thickening. Status post appendectomy. Small bowel loops are unremarkable. Peritoneum: No abnormal intraperitoneal fluid. No free air. Ventral Wall: Small foci of soft tissue attenuation are seen in the anterior abdominal subcutaneous tissues, possibly related to medication injections. Small fat containing periumbilical hernia. Abdominal Nodes: No retroperitoneal or mesenteric adenopathy by size criteria. Vessels: Aorta and inferior vena cava are normal in size. PELVIS: Pelvic Organs: Status post hysterectomy. Bladder: Unremarkable. Pelvic Nodes: No enlarged lymph nodes. Miscellaneous: No inguinal hernias are seen. Bones: No aggressive osseous abnormality. Postsurgical changes are seen in the included cervical spine. Mild subcutaneous edema at the left lower back. IMPRESSION: Mild subcutaneous edema at the left lower back. Otherwise, no acute traumatic findings identified in the chest, abdomen, or pelvis. Approved by: Isaiah Orozco M.D. on 11/22/2024 at 15:43
--- NOTE | 2024-11-22 14:33 | DI.CT.S_ITS ---
PROCEDURE: CT CERVICAL SPINE WO CON INDICATIONS: fall onto left side; neck and back pain on thinners TECHNIQUE: Noncontrast 3 mm thick sections acquired from the skull base to the T4 level. Sagittal and coronal reformats were then constructed. For radiation dose reduction, the following was used: automated exposure control, adjustment of mA and/or kV according to patient size. COMPARISON: [facility], CR, XR CERVICAL SPINE 4V OR 5V, 04/15/2024, 8:19. FINDINGS: Image quality: Excellent. Bones: No acute fractures or dislocations. Postsurgical changes are seen from prior anterior fixation at C3 through T1. Metal hardware appears to be intact. There has been removal of the posterior elements at multiple levels. 2 mm grade 1 anterolisthesis of C2 and C3 does not appear significantly changed. Visualized superior ribs are intact. Soft tissues: Prevertebral soft tissues are normal in thickness. No paravertebral hematomas. No apical pneumothoraces. IMPRESSION: 1. No acute displaced cervical spine fracture or traumatic subluxation. 2. Postsurgical changes again seen from anterior fusion at C3 through T1. Approved by: Isaiah Orozco M.D. on 11/22/2024 at 15:31
--- NOTE | 2024-11-22 14:33 | DI.RAD.S_ITS ---
PROCEDURE: XR ANKLE LT MIN 3V INDICATIONS: fall left foot and ankle pain TECHNIQUE: 3 views of the ankle were acquired. COMPARISON: None. FINDINGS: Bones: Linear lucencies are noted involving distal fibular shaft above the level of ankle mortise. No displaced fracture or dislocation. Ankle mortise is normally aligned. No suspicious bony lesions. Soft tissues: No tibiotalar joint effusion. Achilles tendon appears normal. IMPRESSION: Finding may represent nondisplaced/incomplete distal fibular shaft fracture. No displaced ankle fracture or dislocation. Dictated by: Dominic Paulino M.D. on 11/22/2024 at 15:24 Approved by: Dominic Paulino M.D. on 11/22/2024 at 15:25
[2024-11-22 15:42] VITALS: PULSE 77; O2SAT 97
[2024-11-22 15:43] VITALS: BP 135/78; PULSE 73; O2SAT 100
--- NOTE | 2024-11-22 15:57 | DI.RAD.S_ITS ---
PROCEDURE: XR KNEE LT 3V INDICATIONS: Left distal fibular fracture, concern for proximal fibula fx TECHNIQUE: 3 views of the knee were acquired. COMPARISON: None. FINDINGS: Bones: No fractures or dislocations. Kglf-xr-arpgnfkn tricompartmental osteoarthritis in left knee is seen. No significant patellar subluxation. No suspicious bony lesions. Soft tissues: No joint effusion. No suspicious soft tissue calcifications. IMPRESSION: No acute left knee fracture or dislocation. Nbpy-[id number] tricompartmental osteoarthritis in left knee. No significant joint effusion. Dictated by: Dominic Paulino M.D. on 11/22/2024 at 16:09 Approved by: Dominic Paulino M.D. on 11/22/2024 at 16:10
[2024-11-22 17:36] VITALS: BP 129/65; PULSE 89; RESP 15; O2SAT 96
== END 2024-11-22 17:38 | disposition home or self-care (01) ==
PROVIDERS: Emergency Provider Physician Assistant; PCP Internal Medicine
DX: S82.832A Other fracture of upper and lower end of left fibula, initial encounter for closed fracture (principal); M54.2 Cervicalgia; M54.50 Low back pain, unspecified; M54.6 Pain in thoracic spine; W10.9XXA Fall (on) (from) unspecified stairs and steps, initial encounter; Z79.01 Long term (current) use of anticoagulants
CPT/HCPCS: 70450; 71250; 72125; 73562; 73610; 73630; 74176; 99283; 99284

== ENCOUNTER 2025-05-13 13:25 | Emergency (ER) | payer BC, SELFPAY ==
[2025-05-13 13:32] VITALS: BP 143/86; PULSE 83; RESP 16; TEMP 36.7; O2SAT 96; BMI 30.2
--- NOTE | 2025-05-13 13:37 | DI.RAD.S_ITS ---
PROCEDURE: XR CHEST 1V INDICATIONS: Chest Pain TECHNIQUE: One view of the chest was acquired. COMPARISON: [facility], CR, XR CHEST 2V, 12/12/2023, 9:22. FINDINGS: Surgical changes and devices: Postsurgical changes are noted in visualized lower cervical spine. Lungs and pleura: Lungs are clear. No pleural effusions or pneumothorax. Mediastinum: Mediastinal contours appear normal. Heart size is normal. Bones and chest wall: No suspicious bony lesions. Overlying soft tissues appear unremarkable. IMPRESSION: No acute cardiopulmonary pathology. Dictated by: Dominic Paulino M.D. on 05/13/2025 at 14:10 Approved by: Dominic Paulino M.D. on 05/13/2025 at 14:11
--- NOTE | 2025-05-13 13:43 | EKG_ITS ---
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
[2025-05-13 13:56] LABS: Add Manual Diff / Slide Review NO; Basophils Absolute Auto 0 /uL (0-100); Basophils Percent Auto 0.3 % (0-2); Eosinophils Absolute Auto 100 /uL (0-450); Eosinophils Percent Auto 2.5 % (2-4); Hematocrit 34.8 % (36-46); Hemoglobin 11.5 g/dL (12.0-16.0); Lymphocytes Absolute Auto 1400 /uL (1100-4500); Lymphocytes Percent Auto 27.9 % (25-40); Mean Corpuscular Hemoglobin 24.8 PG (26-34); Mean Corpuscular Volume 75.1 fL (80-100); Monocytes Absolute Auto 500 /uL (0-900); Monocytes Percent Auto 10.2 % (3-14); Neutrophils Absolute Auto 3000 /uL (1500-7000); Neutrophils Percent Auto 59.1 % (50-75); Platelet Count 322 X10^3/uL (150-400); Red Blood Cell Count 4.63 X10^6/uL (4.0-5.2); White Blood Cell Count 5.1 X10^3/uL (4.5-11.0)
--- NOTE | 2025-05-13 14:18 | ED.HA ---
HPI - Headache General Chief Complaint: Dizziness Stated Complaint: Fatigue, Headache, Dizzyness Time Seen by Provider: 05/13/25 13:51 Mode of arrival: Ambulatory History of Present Illness HPI Narrative: 59-year-old female history of factor 5 [place] currently on Coumadin with a history of multiple PE, DVT, CVA with residual left-sided weakness presents with gradual onset of headache dizziness weakness and general feeling of unwellness over the last few weeks worse today 8/10 headache on the right side sharp and stabbing unrelieved with hydrocodone at home. Patient denies nausea vomiting cough runny nose sore throat fever chills body aches vision loss difficulty swallowing localized weakness or slurred speech. Other than what is stated 14 point review of system is negative Related Data Home Medications ?Medication ?Instructions ?Recorded ?Confirmed atorvastatin 40 mg tablet 40 mg PO DAILY 04/15/24 05/03/24 fexofenadine 180 mg tablet 180 mg PO DAILY 04/15/24 05/03/24 (Jacqueline Allergy) hydrocodone 5 mg-acetaminophen 325 1 tab PO 3XD PRN 04/15/24 05/03/24 mg tablet levothyroxine 75 mcg tablet 75 mcg PO DAILY 04/15/24 05/03/24 sertraline 100 mg tablet 150 mg PO DAILY 04/15/24 05/03/24 warfarin 10 mg tablet 10 mg PO BEDTIME 04/15/24 05/03/24 albuterol sulfate 90 mcg/actuation inhalation 05/03/24 05/03/24 aerosol inhaler (Ventolin HFA) beclomethasone dipropionate 80 inhalation 05/03/24 05/03/24 mcg/actuation HFA breath activated aerosol (Qvar RediHaler) Previous Rx's ?Medication ?Instructions ?Recorded pregabalin 50 mg capsule 50 mg PO BID #60 caps 04/15/24 mbfztouoaa-osuszxuocxoxg-ygjlnrhz 1 cap PO Q4-6H PRN pain #30 caps 05/13/25 50 mg-300 mg-40 mg capsule (Fioricet) Allergies Allergy/AdvReac Type Severity Reaction Status Date / Time melon AdvReac Severe Difficulty Verified 05/13/25 13:32 Swallowing barium sulfate AdvReac Hives Verified 05/13/25 13:32 Sulfa (Sulfonamide AdvReac Vomiting Verified 05/13/25 13:32 Antibiotics) Review of Systems Review of Systems ROS Unobtainable: All systems reviewed & are unremarkable except as noted in HPI and below Patient History Medical History Myofascial pain Bilateral occipital neuralgia Cervical radiculopathy Cervical spondylosis Neck pain Surgical History History of fusion of cervical spine Social History Smoking Status: Never smoker Smoking Status: Never smoker alcohol intake frequency: 0-2 drinks per day Exam Narrative Exam Narrative: GENERAL: [59] year old patient appears stated age. Well-developed patient, in mild distress. HEAD: Atraumatic. Normocephalic. EYES: Pupils equal round and reactive. Extraocular motions intact. No scleral icterus. No injection or drainage. ENT: Nose without bleeding, purulent drainage. Throat without erythema, tonsillar hypertrophy or exudate. Airway patent. NECK: Trachea midline. Non tender CARDIOVASCULAR: Regular rate and rhythm without murmurs, gallops, or rubs. RESPIRATORY: Clear to auscultation. Breath sounds equal bilaterally. No wheezes, rales, or rhonchi. GASTROINTESTINAL: Abdomen soft, non-tender, nondistended. EXTREMITIES: No edema or joint tenderness. BACK: Nontender without deformity or crepitance. No flank tenderness. NEURO: AOx3. GCS 15 nonfocal neuro exam negative pronator drift upper and bilateral extremity 5/5 motor sensory intact +2 DP +2 PT cap refill less than 2 seconds bilateral upper and lower extremity. Yoscoc-ua-kfdo opposite heel to bailey test and rapid alternating movement intact SKIN: No rash or erythema of visible areas Initial Vital Signs Initial Vital Signs: Vital Signs Temperature 98.1 F 05/13/25 13:32 Pulse Rate 83 05/13/25 13:32 Respiratory Rate 16 05/13/25 13:32 Blood Pressure 143/86 H 05/13/25 13:32 Pulse Oximetry 96 05/13/25 13:32 Oxygen Delivery Method Room Air 05/13/25 13:32 Course Orders Ordered: ED Orders 05/13/25 13:37 XR chest 1V Stat EKG-12 Lead Stat 05/13/25 13:48 Complete Blood Count AUTO DIFF Stat Comprehensive Metabolic Panel Stat Lipase Stat Magnesium Stat NT-proBNP (BNP-Adult 18+) Stat PTT Partial Thromboplastin [place] Stat Prothrombin Time INR Stat Troponin & CK Cardiac Panel Stat Discontinued Medications Aspirin (Aspirin 81 Mg Chew Tab) 324 mg PO NOW ONE Stop: 05/13/25 13:38 Vital Signs Vital signs: Vital Signs - 8 hr 05/13/25 13:32 Temperature 98.1 F Pulse Rate 83 Respiratory Rate 16 Blood Pressure 143/86 H Pulse Oximetry 96 Oxygen Delivery Method Room Air MDM - Headache Lab Data 05/13/25 13:48 05/13/25 13:48 Labs: Lab Results 05/13/25 Range/Units 13:48 WBC 5.1 (4.5-11.0) X10^3/uL RBC 4.63 (4.0-5.2) X10^6/uL Hgb 11.5 L (12.0-16.0) g/dL Hct 34.8 L (36-46) % MCV 75.1 L (80-100) fL MCH 24.8 L (26-34) PG MCHC 33.0 (30-36) % RDW 17.0 H (11.6-14.8) % Plt Count 322 (150-400) X10^3/uL Neut % (Auto) 59.1 (50-75) % Lymph % (Auto) 27.9 (25-40) % Callahan % (Auto) 10.2 (3-14) % Eos % (Auto) 2.5 (2-4) % Baso % (Auto) 0.3 (0-2) % Neut # (Auto) 3000 (7115-3252) /uL Lymph # (Auto) 1400 (7876-2902) /uL Callahan # (Auto) 500 (0-900) /uL Eos # (Auto) 100 (0-450) /uL Baso # (Auto) 0 (0-100) /uL Imaging Data Chest x-ray: Radiologist's Impression: [address] [address] XRay Report Signed Patient: Wendy Maki MR#: [id number] : 1965 Acct:[id number] Age/Sex: 59 / F Date of Service: 05/13/25 Loc: ED Accession Number: [id number] Procedure: XR chest 1V Ordering Provider: Alber Tavares D.O. PROCEDURE: XR CHEST 1V INDICATIONS: Chest Pain TECHNIQUE: One view of the chest was acquired. COMPARISON: [facility], CR, XR CHEST 2V, 12/12/2023, 9:22. FINDINGS: Surgical changes and devices: Postsurgical changes are noted in visualized lower cervical spine. Lungs and pleura: Lungs are clear. No pleural effusions or pneumothorax. Mediastinum: Mediastinal contours appear normal. Heart size is normal. Bones and chest wall: No suspicious bony lesions. Overlying soft tissues appear unremarkable. IMPRESSION: No acute cardiopulmonary pathology. CT scan - head: Radiologist's Impression: [address] [address] [address] Scan Report Signed Patient: Wendy Maki MR#: [id number] : 1965 Acct:[id number] Age/Sex: 59 / F Date of Service: 05/13/25 Loc: ED Accession Number: [id number] Procedure: CT head/brain wo con Ordering Provider: Alber Tavares D.O. PROCEDURE: CT HEAD/BRAIN WO CON INDICATIONS: headache TECHNIQUE: Noncontrast 4.5 mm thick angled axial sections acquired from the foramen magnum to the vertex, with coronal and sagittal reformats. For radiation dose reduction, the following was used: automated exposure control, adjustment of mA and/or kV according to patient size. COMPARISON: [facility], CT, CT HEAD/BRAIN WO CON, 11/22/2024, 14:52. FINDINGS: Image quality: Diagnostic. CSF spaces: Basal cisterns are patent. No extra-axial fluid collections. Ventricles are normal in size and shape. Brain: No midline shift. No intracranial mass effect or hemorrhage. Parekh-white matter interface is normal. Skull and face: Calvarium and visualized facial bones are intact, without suspicious lesions. Sinuses: Visualized sinuses and mastoids are clear. IMPRESSION: No acute intracranial pathology. Dictated by: Dominic Paulino M.D. on 05/13/2025 at 15:32 Approved by: Dominic Paulino M.D. on 05/13/2025 at 15:[address] [address] [address] Scan Report Signed Patient: Wendy Maki MR#: [id number] : 1965 Acct:[id number] Age/Sex: 59 / F Date of Service: 05/13/25 Loc: ED Accession Number: [id number] Procedure: CT angio head and neck Ordering Provider: Alber Tavares D.O. PROCEDURE: CT ANGIO HEAD AND NECK INDICATIONS: headache TECHNIQUE: After the administration of intravenous contrast, 1 mm thick sections acquired from the aortic arch through the [place] of [place]. 3-dimensional aigcqft-kfzhwmpin-eeelcqkczt (MIP) and/or volume rendering reformats were acquired of the central intracranial vasculature and neck separately. For radiation dose reduction, the following was used: automated exposure control, adjustment of mA and/or kV according to patient size. COMPARISON: None. FINDINGS: Image quality: Diagnostic. Cerebral CT Angiogram: Internal carotid arteries: No acute findings. Intracranial ICA are patent with no significant stenosis. No occlusion. No aneurysm. Anterior cerebral arteries: Unremarkable. No significant stenosis. No occlusion. No aneurysm. Middle cerebral arteries: Unremarkable. No significant stenosis. No occlusion. No aneurysm. Posterior cerebral arteries: Unremarkable. No significant stenosis. No occlusion. No aneurysm. Basilar artery: Unremarkable. No significant stenosis. No occlusion. No aneurysm. Vertebral arteries: Unremarkable as visualized. Dural venous sinuses: Unremarkable given phase of enhancement. Other: Arterial phase appearance of the brain parenchyma is unremarkable. Neck CT Angiogram: Internal carotid arteries: Unremarkable. No significant stenosis. No dissection or occlusion. Common carotid arteries: Unremarkable. No significant stenosis. No dissection or occlusion. External carotid arteries: Unremarkable. No occlusion. Vertebral arteries: Unremarkable. No significant stenosis. No dissection or occlusion. Aortic Arch and Mediastinum: Partially visualized aortic arch unremarkable without evidence of aneurysm. Origins of the great vessels unremarkable. Other: Arterial phase soft tissues of the neck and chest are unremarkable. Postsurgical changes are noted in cervical spine from prior anterior fusion. IMPRESSION: 1. No significant intracranial arterial abnormality is seen. 2. No significant abnormality is seen within the arteries of the neck. Any quantitative measurements of stenosis were performed using NASCET criteria. Dictated by: Dominic Paulino M.D. on 05/13/2025 at 15:34 ECG Data Interpretation: NSR HR 79 SC 150 QRS [address]-t wave change Unchanged from 12/30/23 MDM Narrative Medical decision making narrative: Vital signs nurse triage note medication list previous ER visits and all imaging modalities reviewed. Troponin normal glucose 101 INR 2 point hemoglobin 11.5 normal white count. Chest x-ray CTA head and neck and CT head showed no acute process. GCS 15 nonfocal neuro exam alert and oriented x4. Patient given fluids Toradol Benadryl droperidol and Valium here along with IV fluids. Patient feels much better on reexamination. Differential diagnosis includes CVA TIA subarachnoid hemorrhage subdural hemorrhage aneurysm migraine. DC home on Fioricet. Follow up with PCP next week for re-examination. Discharge Plan Departure Patient Disposition: Home Clinical Impression: Migraine Qualifiers: Migraine type: chronic migraine (15 or more days per month) without aura Status migrainosus presence: without status migrainosus Intractability: intractable Qualified Code(s): G43.719 - Chronic migraine without aura, intractable, without status migrainosus Instructions: Migraine -- Adult Activity Restrictions/Additional Instructions: Return with new or worsening symptoms. Take your medicines as directed. Follow up with PCP next week for Re evaluation if no improvement in symptoms. Prescriptions: New sofibpscin-mixxivycfzwkx-yaft [Fioricet] 50-300-40 mg capsule 1 cap PO Q4-6H PRN (Reason: pain) Qty: 30 0RF No Action warfarin 10 mg tablet 10 mg PO BEDTIME sertraline 100 mg tablet 150 mg PO DAILY atorvastatin 40 mg tablet 40 mg PO DAILY levothyroxine 75 mcg tablet 75 mcg PO DAILY hydrocodone-acetaminophen 5-325 mg tablet 1 tab PO 3XD PRN fexofenadine [Jacqueline Allergy] 180 mg tablet 180 mg PO DAILY pregabalin 50 mg capsule 50 mg PO BID Qty: 60 2RF Rx Instructions: 1 PO QHS x3 days If tolerated, 1 PO BID Qvar RediHaler 80 mcg/actuation HFA aerosol breath activated inhalation albuterol sulfate [Ventolin HFA] 90 mcg/actuation HFA aerosol inhaler inhalation Referrals: Gisela Boone MD [Primary Care Provider, Internal Medicine] Stand Alone Forms: Patient Portal/API
[2025-05-13 14:19] LABS: INR 2.4 (0.9-1.3); Prothrombin Time 26.5 SECONDS (9.4-12.5)
[2025-05-13 14:21] LABS: PTT Partial Thromboplastin Tim 43 SECONDS (25.1-36.5)
[2025-05-13 14:23] LABS: Alanine Aminotransferase 26 IU/L (<35); Albumin 4.4 g/dL (3.5-5.0); Albumin Globulin Ratio 1.5 (1.0-2.8); Alkaline Phosphatase 77 U/L (38-126); Aspartate Aminotransferase 33 IU/L (14-36); BUN Creatinine Ratio 22.4 (6-22); Bilirubin Total 0.4 mg/dL (0.2-1.3); Blood Urea Nitrogen 17 mg/dL (7-17); Calcium 9.2 mg/dL (8.4-10.2); Carbon Dioxide 25 mmol/L (22-32); Chloride 107 mmol/L (98-107); Creatine Kinase 59 U/L (30-135); Estimated Glomerular Filt Rate > 60 mL/min (>60); Glucose 101 mg/dL (70-99); HEMOLYSIS < 15 (0-50); Lipase 49 U/L (23-300); Magnesium 1.8 mg/dL (1.6-2.3); Potassium 4.1 mmol/L (3.4-5.1); Sodium 140 mmol/L (137-145); Total Protein 7.4 g/dL (6.3-8.2)
--- NOTE | 2025-05-13 14:32 | DI.CT.S_ITS ---
PROCEDURE: CT ANGIO HEAD AND NECK INDICATIONS: headache TECHNIQUE: After the administration of intravenous contrast, 1 mm thick sections acquired from the aortic arch through the [place] of [place]. 3-dimensional njnvrrv-fcndtczit-tcepuscjia (MIP) and/or volume rendering reformats were acquired of the central intracranial vasculature and neck separately. For radiation dose reduction, the following was used: automated exposure control, adjustment of mA and/or kV according to patient size. COMPARISON: None. FINDINGS: Image quality: Diagnostic. Cerebral CT Angiogram: Internal carotid arteries: No acute findings. Intracranial ICA are patent with no significant stenosis. No occlusion. No aneurysm. Anterior cerebral arteries: Unremarkable. No significant stenosis. No occlusion. No aneurysm. Middle cerebral arteries: Unremarkable. No significant stenosis. No occlusion. No aneurysm. Posterior cerebral arteries: Unremarkable. No significant stenosis. No occlusion. No aneurysm. Basilar artery: Unremarkable. No significant stenosis. No occlusion. No aneurysm. Vertebral arteries: Unremarkable as visualized. Dural venous sinuses: Unremarkable given phase of enhancement. Other: Arterial phase appearance of the brain parenchyma is unremarkable. Neck CT Angiogram: Internal carotid arteries: Unremarkable. No significant stenosis. No dissection or occlusion. Common carotid arteries: Unremarkable. No significant stenosis. No dissection or occlusion. External carotid arteries: Unremarkable. No occlusion. Vertebral arteries: Unremarkable. No significant stenosis. No dissection or occlusion. Aortic Arch and Mediastinum: Partially visualized aortic arch unremarkable without evidence of aneurysm. Origins of the great vessels unremarkable. Other: Arterial phase soft tissues of the neck and chest are unremarkable. Postsurgical changes are noted in cervical spine from prior anterior fusion. IMPRESSION: 1. No significant intracranial arterial abnormality is seen. 2. No significant abnormality is seen within the arteries of the neck. Any quantitative measurements of stenosis were performed using NASCET criteria. Dictated by: Dominic Paulino M.D. on 05/13/2025 at 15:34 Approved by: Dominic Paulino M.D. on 05/13/2025 at 15:41
--- NOTE | 2025-05-13 14:32 | DI.CT.S_ITS ---
PROCEDURE: CT HEAD/BRAIN WO CON INDICATIONS: headache TECHNIQUE: Noncontrast 4.5 mm thick angled axial sections acquired from the foramen magnum to the vertex, with coronal and sagittal reformats. For radiation dose reduction, the following was used: automated exposure control, adjustment of mA and/or kV according to patient size. COMPARISON: [facility], CT, CT HEAD/BRAIN WO CON, 11/22/2024, 14:52. FINDINGS: Image quality: Diagnostic. CSF spaces: Basal cisterns are patent. No extra-axial fluid collections. Ventricles are normal in size and shape. Brain: No midline shift. No intracranial mass effect or hemorrhage. Parekh- white matter interface is normal. Skull and face: Calvarium and visualized facial bones are intact, without suspicious lesions. Sinuses: Visualized sinuses and mastoids are clear. IMPRESSION: No acute intracranial pathology. Dictated by: Dominic Paulino M.D. on 05/13/2025 at 15:32 Approved by: Dominic Paulino M.D. on 05/13/2025 at 15:32
[2025-05-13 14:34] LABS: NT-proBNP (BNP-Adult 18+) 116 pg/mL (<125); Troponin I < 0.012 ng/mL (0.01-0.034)
[2025-05-13] MEDS: diphenhydrAMINE 50 MG/ML VIAL IV (15:59)
[2025-05-13] MEDS: droPERidol 2.5 MG/ML VIAL IV (15:59)
[2025-05-13] MEDS: KETOROLAC 30 MG/ML VIAL 15 MG IV (15:59)
[2025-05-13] MEDS: LACTATED RINGERS 1,000 ML 1000 ML IV (16:00)
--- NOTE | 2025-05-13 16:38 | PC.NURSE ---
Pt reports feeling anxious. Pt appears uncomfortable. Squirming in bed. Dr Tavares notified.
--- NOTE | 2025-05-13 16:39 | PC.NURSE ---
Pt anxious and feeling like she is crawling out of her skin MD aware verbal order for 2.5mg valium
[2025-05-13] MEDS: diazePAM 10 MG/2 ML SYRINGE 2.5 MG IV (16:43)
[2025-05-13 16:44] VITALS: BP 135/78; PULSE 81; RESP 22; O2SAT 98
--- NOTE | 2025-05-13 16:56 | PC.NURSE ---
Medicated with 2.5 mg Valium. Pt feeling a bit better. [place]
[2025-05-13 17:00] VITALS: BP 144/68; PULSE 75; RESP 18; O2SAT 96
== END 2025-05-13 17:37 | disposition home or self-care (01) ==
PROVIDERS: Emergency Provider Family Medicine; PCP Internal Medicine
DX: G43.719 Chronic migraine without aura, intractable, without status migrainosus (principal); R07.9 Chest pain, unspecified; Z86.73 Personal history of transient ischemic attack (TIA), and cerebral infarction without residual deficits
CPT/HCPCS: 36415; 70450; 70496; 70498; 71045; 80053; 82550; 83690; 83735; 83880; 84484; 85025; 85610; 85730; 93005; 96361; 96374; 96375; 99284; J1200; J1790; J1885; J3360; Q9967